=== PATIENT | female | born 1985 | race Caucasian/White ===

== ENCOUNTER 2020-10-25 08:23 | Emergency (ER) | payer BC ==
[~2020-10-25] VITALS: Ht 180.3 cm; Wt 84.4 kg
--- NOTE | 2020-10-25 09:19 | NUR ---
PT PRESENTS TO ED 8 WEEKS , REPORTS CRAMPING LAST NIGHT AND AN EPISODE OF BLEEDING THIS MORNING. PT DENIES PAIN OR BLEEDING AT THIS TIME. PT CURRENTLY TAKEN TO US. PARTNER AT BEDSIDE.
--- NOTE | 2020-10-25 09:50 | NUR ---
PT STILL IN US.
[2020-10-25 10:09] LABS: BASOPHILS % (AUTO) 1 % (0-1); EOSINOPHILS % (AUTO) 1 % (1-7); LYMPHOCYTES % (AUTO) 19 % (22-44); MEAN CORPUSCULAR HEMOGLOBIN 33.9 pg (27.0-34.8); MEAN CORPUSCULAR HGB CONC 34.1 g/dL (32.4-35.8); MEAN PLATELET VOLUME 8.2 fL (7.4-10.4); MONOCYTES % (AUTO) 8 % (2-9); NEUTROPHILS % (AUTO) 72 % (42-75); PLATELET COUNT 295 x10^3/uL (130-400); RED BLOOD COUNT 4.31 x10^6/uL (3.82-5.3); RED CELL DISTRIBUTION WIDTH 14.4 % (9.6-15.2)
--- NOTE | 2020-10-25 10:20 | NUR ---
DISCUSSION WITH BLOOD BANK IN PREPARATION FOR RHOGAM.
--- NOTE | 2020-10-25 10:24 | NUR ---
PT RECLINED IN BED, RESPIRATIONS EVEN AND UNLABORED ON RA. SPOUSE AT BEDSIDE. SIDE RAILS UP, CALL LIGHT IN REACH.
[2020-10-25 11:26] VITALS: BP 118/77
[2020-10-25 11:50] VITALS: BP 112/70
--- NOTE | 2020-10-25 11:51 | NUR ---
15 MINUTE POST RHOGAM CHECK COMPLETED. PT DENIES SIDE EFFECTS AT THIS TIME. PREPARED FOR DC
== END 2020-10-25 11:52 | disposition home or self-care (01) ==
LOC: ED 09:01
DX: O03.9 Complete or unspecified spontaneous abortion without complication (principal)
CPT/HCPCS: 36415; 76801; 84702; 85025; 86850; 86900; 96372; 99284; J2790